=== PATIENT | female | born 2000 | race Caucasian/White ===

== ENCOUNTER 2021-03-22 21:42 | Observation (INO) | payer OTHER, SELFPAY ==
--- NOTE | 2021-03-22 | FALS_PTH ---
PATIENT: JOSE L JEFFERS LOC: MS2 U#:[id number] AGE/SX: ROOM: MS219 RE03/23/[address]: Dr. Kimberly Ley MD : 2000 BED: 1 DIS: 03/23/2021 SPEC #: [id number] RECD: 03/23/21 07:35 STATUS: NOAH REBhavik #: [id number] CAROLE: 03/22/21 00:[address]: Kimberly Ley DEPT: SURGICAL PATHOLOGY RECD BY: Max Terry ENTERED: 03/23/21 09:17 SP TYPE: FALL TUBES OTHR DR: No Primary Care Phys Tissues: ECTOPIC PREG Procedures: Surgery Specimen Level IV HEADER OPERATION: Laparoscopic salpingectomy, removal of ectopic PRE-OP DIAGNOSIS: Ruptured ectopic with hemopertineum TISSUE SUBMITTED: Right fallopian tube with ectopic MICROSCOPIC DIAGNOSIS Right fallopian tube with ectopic , salpingectomy: Fallopian tube with blood clots and immature chorionic villi (ectopic ). A paratubal cyst. SJ:marcelo 03/24/2021 MICROSCOPIC DESCRIPTION Slides are reviewed. GROSS DESCRIPTION Received in fixative is one container labeled with the patient's name and designated right fallopian tube. The specimen consists of a fallopian tube received in two fragments. One fragment measures 5 cm in length and 0.8 cm in average diameter and contains a normal fimbriated end. Adjacent to the fimbriated end is a smooth, glistening cyst containing clear fluid and measuring 0.8 cm. The second fragment is lobular and hemorrhagic and measures 3.5 x 3 x 2.5 cm. Serial sections of this fragment reveals hemorrhagic cut surfaces. No parts are grossly recognized. Filter Tip Catcher sections are submitted in four cassettes. / AM:marcelo 03/23/21 TC:5 CPT: 29325
[2021-03-22 21:43] VITALS: BP 113/57; PULSE 81; RESP 16; TEMP 36.3; O2SAT 100; BMI 20.5
--- NOTE | 2021-03-22 22:02 | ED.RN ---
pt spouse approaches triage stating patient feels like she is going to pass out. Pt is pale and sweaty. Pt assisted into triage 2 to lay down BP 70/45 with HR 89. Pt dizzy and feels like shes going to pass out. verbal order received from Dr Vaca for IV fluids and transvaginal ultrasound.
[2021-03-22] MEDS: 0.9% Normal Saline 1,000 ML 999 ML IV (22:06)
--- NOTE | 2021-03-22 22:07 | US_ITS ---
We are attempting to reach an attending provider to discuss findings. An addendum with communication details will be sent when the communication is complete. STUDY: ULTRASOUND OF THE FEMALE PELVIS - COMPLETE REASON FOR EXAM: Female, 20 years old. Vaginal bleeding and pelvic pain. 8 weeks per history. LMP: Not provided. TECHNIQUE: Transvaginal. COMPARISON: None. FINDINGS: No evidence of intrauterine . Heterogenous thickened endometrium, 2.2 cm in AP dimension. Right adnexal mass anterior to the uterus and separate from the ovary, 6.2 x 3.8 cm. Large amount of mildly echogenic free fluid in the pelvis and extending into MORISON''s pouch. Right ovary 3.9 x 2.6 x 2.3 cm appropriate color DOPPLER flow. Left ovary not visualized. No suspicious left adnexal mass. US/Transvaginal w/Preg US IMPRESSION: Ruptured right adnexal ectopic with a large amount of blood in the peritoneal cavity. Electronically Signed: Neri Goss MD at 23:47 EST Tel , Service support ,
[2021-03-22 22:14] LABS: Absolute Lymphocyte Count 3.15 X10^3/uL (0.83-4.51); Absolute Neutrophil Count 8.4 X10^3/uL (2.0-7.7); Basophil# 0.04 X10^3/uL; Basophil% 0.3 % (0-1); Eosinophil# 0.19 X10^3/uL; Eosinophils% 1.5 % (0-5); Hematocrit 39.1 % (37-47); Hemoglobin 13.3 g/dL (12.0-15.0); Lymphocyte # 3.15 X10^3/ul (0.83-4.51); Lymphocyte % 25.2 % (19-41); Mean Corpuscular Hgb 33.1 pg (27.0-32.0); Mean Corpuscular Volume 97.3 fL (81-99); Mean Platelet Vol. 9.6 fl (6.2-12.0); Monocyte# 0.65 X10^3/uL; Monocyte% 5.2 % (0-10); NRBC Flagged by Analyzer 0 % (0-5); Neutrophil # 8.43 X10^3/uL (2.7-7.7); Neutrophil % 67.5 % (47-70); Platelet Count 288 K/mm3 (150-450); RBC Distribution Width CV 12.3 % (11.6-14.6); RBC Distribution Width SD 44.2 fl (35.1-43.9); Red Blood Count 4.02 M/mm3 (4.2-5.4); White Blood Count 12.5 K/mm3 (4.4-11.0)
--- NOTE | 2021-03-22 22:22 | ED.RN ---
pt taken down to ultrasound via wheelchair.
[2021-03-22 22:38] LABS: Anion Gap 7 (5-15); BUN 12 mg/dL (7-18); BUN/Creat Ratio 16.3 RATIO (10-20); Calcium,Total 8.5 mg/dL (8.5-10.1); Chloride 105 mmol/L (98-107); Creatinine, Serum 0.74 mg/dL (0.55-1.02); EST Glomerular Filtration Rate 104 mL/min (>60); Est Glom Filt Rate - Afr Amer 126 mL/min (>60); Estimated Creatinine Clearance 102.47 ml/min; Glucose 105 mg/dL (74-106); Potassium 3.9 mmol/L (3.5-5.1); Sodium Level 138 mmol/L (136-145)
[2021-03-22 22:39] LABS: Internal QC Validated? YES +Cl - CLEAR BKGD
[2021-03-22 22:40] LABS: Pregnancy, Serum, hCG Quali. POSITIVE Negative
[2021-03-22 23:30] VITALS: BP 98/52
[2021-03-23] VITALS (13 sets, daily range): BP systolic 86–114; BP diastolic 42–75; PULSE 75–114; RESP 14–18; TEMP 36.4–36.9; O2SAT 96–100; BMI 20.5; BMI 23.3
[2021-03-23] MEDS: 0.9% Normal Saline 1,000 ML 999 ML IV
[2021-03-23] MEDS: Ondansetron 4 MG/2 ML Vial IV (00:07)
[2021-03-23] MEDS: Morphine 4 MG/ML Syringe IV (00:08)
--- NOTE | 2021-03-23 00:32 | EDS_ITS ---
HPI HPI - Female History of Present Illness Chief Complaint: Vag Bld, Preg Narrative Narrative: Patient is a female approximately 8 weeks . She states she noticed some spotting over the past 1 to 2 days. She states that today she developed increased bleeding with pain mainly in her mid to right lower quadrant of her abdomen. She states that these new symptoms occurred approximately 2 to 3 hours prior to arrival. She reports there is been no improvement of symptoms with time and secondary to this she presents for evaluation. The patient denies any history of bleeding disorder or blood thinner use PFSH PFSH Medical History no medical history Home Medications acetaminophen [Tylenol] 650 mg PO Q6H PRN 03/23/21 [History Last Taken Unknown] ibuprofen 600 mg PO Q6H PRN 03/23/21 [History Last Taken Unknown] Allergy/AdvReac Type Severity Reaction Status Date / Time No Known Allergies Allergy Verified 03/22/21 21:44 Surgical History no surgical history Social History Smoking Status: Never smoker ROS [facility] ED Constitutional Constitutional ED: Denies chills or fever(s) ENT ENT ED: Denies sore throat Cardiovascular Cardiovascular: Denies chest pain Respiratory/Chest Respiratory/Chest: Denies cough or dyspnea Gastrointestinal Gastrointestinal: Reports abdominal pain and nausea; Denies diarrhea or vomiting Genitourinary Genitourinary ED: Reports other Details: Positive vaginal bleeding ; Denies dysuria Musculoskeletal Musculoskeletal: Denies myalgias Integumentary Denies rash Neurologic Neurologic: Denies headache(s) Hematologic/Lymphatic Hematologic/Lymphatic: Denies easy bleeding or easy bruising EXAM Physical Exam Const Vital Signs: 03/22/21 21:43 03/22/21 23:30 03/23/21 00:02 Temperature 97.4 F L Temperature Source Temporal Pulse Rate 81 75 Respiratory Rate 16 16 Blood Pressure 113/57 L 98/52 L 114/75 Blood Pressure Mean 75 67 88 Blood Pressure Source Blood Pressure Position Blood Pressure Location Pulse Ox 100 100 Oxygen Delivery Method Room Air Room Air 03/23/21 00:16 Temperature 97.7 F L Temperature Source Oral Pulse Rate 88 Respiratory Rate 16 Blood Pressure 101/60 Blood Pressure Mean 73 Blood Pressure Source Monitor Blood Pressure Position Sitting Blood Pressure Location Left Arm Pulse Ox 100 Oxygen Delivery Method Room Air Positive well nourished and well developed General Appearance ED: well developed HEENT Reports moist mucous membranes Eyes PERRL and EOMs intact bilaterally General Eye ED: Yes pale conjunctiva Neck supple Resp normal respiratory effort and clear to auscultation bilaterally Cardio regular rate and regular rhythm GI non-distended GI Narrative: There is pain with palpation in the suprapubic and right lower quadrant region of the abdomen with mild guarding at the site. Auscultation: normoactive bowel sounds Palpation: soft Extremity normal to inspection Neuro oriented x3 and CN's II-XII intact bilaterally Sensorium / Orientation: alert Psych mental status grossly normal Skin no rashes or lesions noted Skin Narrative: Skin is pale in color but capillary refill is less than 3 seconds MDM MDM MDM Narrative Medical decision making narrative: Patient presented to the ER afebrile and not tachycardic. Based on her complaint of abdominal pain with bleeding and her 8- week status basic blood work was ordered as well as an ultrasound. Patient's initial blood pressure was hypotensive with was taken just after the insertion of the IV and it was unknown if this was due to possible vagal episode or true hypotension. The patient's blood volume was normal indicating she is needing a blood transfusion but despite this her pressure remained borderline low so she was started on IV fluid. The ultrasound did show a ruptured ectopic consistent with her report of increased abdominal pain and bleeding. Secondary to this [facility] was contacted. They agreed to accept the patient at this time and will take her to the operating room to correct her symptoms. With improvement of the blood pressure with IV fluids as well as a hemoglobin well above transfusion value I do not feel there is need to start blood at this time the patient will be admitted to [facility] for surgery at this time secondary to her ruptured ectopic Lab Data Attestation: I reviewed the patient's lab results. Labs: Laboratory Results - last 24 hr 03/22/21 03/22/21 03/22/21 21:50 21:52 21:52 WBC 12.5 H RBC 4.02 L Hgb 13.3 Hct 39.1 MCV 97.3 MCH 33.1 H MCHC 34.0 RDW Std Deviation 44.2 H RDW Coeff of Teresa 12.3 Plt Count 288 MPV 9.6 Immature Gran % (Auto) 0.300 Neut % (Auto) 67.5 Lymph % (Auto) 25.2 [place] % (Auto) 5.2 Eos % (Auto) 1.5 Baso % (Auto) 0.3 Absolute Neuts (auto) 8.4 H Absolute Lymphs (auto) 3.15 Nucleated RBC % 0 Sodium 138 Potassium 3.9 Chloride 105 Carbon Dioxide 26.0 Anion Gap 7 BUN 12 Creatinine 0.74 Estim Creat Clear Calc 102.47 Est GFR (MDRD) Af Amer 126 Est GFR (MDRD) Non-Af 104 BUN/Creatinine Ratio 16.3 Glucose 105 Calcium 8.5 Serum , Qual Blood Type A POSITIVE Antibody Screen 03/22/21 03/23/21 21:52 21:50 WBC RBC Hgb Hct MCV MCH MCHC RDW Std Deviation RDW Coeff of Teresa Plt Count MPV Immature Gran % (Auto) Neut % (Auto) Lymph % (Auto) [place] % (Auto) Eos % (Auto) Baso % (Auto) Absolute Neuts (auto) Absolute Lymphs (auto) Nucleated RBC % Sodium Potassium Chloride Carbon Dioxide Anion Gap BUN Creatinine Estim Creat Clear Calc Est GFR (MDRD) Af Amer Est GFR (MDRD) Non-Af BUN/Creatinine Ratio Glucose Calcium Serum , Qual POSITIVE H Blood Type Antibody Screen Cancelled Radiography Diagnostic Testing: Clinical Impression(s) from Imaging Studies Obstetrics Ultrasound 03/22/21 22:07 IMPRESSION: Ruptured right adnexal ectopic with a large amount of blood in the peritoneal cavity. Electronically Signed: Neri Goss MD at 23:47 EST Tel , Service support , ADDENDUM: 03/22/21 [id number] IMPRESSION: Ruptured right adnexal ectopic with a large amount of blood in the peritoneal cavity. N.B. : The above Results were Read Back by Neri Goss MD to Dr. Lio MD, and understanding confirmed on 03/22/2021 23:49:07 (ET). Electronically Signed: Neri Goss MD at 23:47 EST Tel , Service support , Critical Care Time Critical Care Time: Yes Critical care time (excluding procedures): - (Please note critical care time of 33 minutes) Discharge Plan Dx/Rx/DC Orders Clinical Impression: Ruptured ectopic Disposition Disposition: Acute Care Hospital [facility] Discharge Date/Time: 03/23/21 01:30
[2021-03-23 00:41] LABS: International Normalized Ratio 1.1; Partial Thromboplast Time 28.2 Seconds (24.1-36.2); Prothrombin Time (Protime)PT. 13.8 SECONDS (11.7-14.9)
[2021-03-23 01:01] LABS: hCG Titer Quant., Serum 1430 mIU/mL (1-3)
[2021-03-23] MEDS: Bupivacaine Mpf 0.5% 30 ML VIAL (02:20)
[2021-03-23] MEDS: Lactated Ringers 1,000 ML 100 ML IV ×2 (03:50→06:41)
--- NOTE | 2021-03-23 04:35 | PCS.PANDOC ---
PANDEMIC DOCUMENTATION INITIATED: Date: 11/02/2020 Time: 1900 Emergency Documentation initiated 03/23/21 @ 0400
[2021-03-23] MEDS: Ibuprofen 600 MG Tablet PO (08:39)
[2021-03-23 11:45] LABS: Hematocrit 27.1 % (37-47); Hemoglobin 8.9 g/dL (12.0-15.0)
[2021-03-23] MEDS: Acetaminophen 325 MG Tablet 650 MG PO (12:00)
--- NOTE | 2021-03-23 16:08 | PCM.OPRPT ---
Problems Associated Problem List Diagnoses (1) Hypotension due to hypovolemia: Report of Operation Date of Procedure: 03/23/21 Pre-Operative Diagnosis: Ruptured Ectopic, Hypotension from acute blood loss Post-Operative Diagnosis: Right ruptured ectopic Surgery/Procedure Performed:: Laparoscopic right salpingectomy Description of Surgical Findings:: 500 ml hemoperitoneum, ruptured enlarged Right fallopian tube with attached clot. Surgeon: Kimberly Ley rehab therapist: Precious Patel Type of Anesthesia: General Anesthesiologist: Jelani Appiah Special Medications: Tranexamic acid 1 gm. IV Specimen's removed: Right salpinx Drains: none; urine output 200ml Estimated Blood Loss (mL): 5ml Fluids Replaced: see anesthesia note Description of Procedure: After general anesthesia was obtained the patient was prepped and draped in the usual sterile fashion in the dorsal extended ski position and a Diallo catheter was placed to continuous drainage. Hulka tenaculum was placed in the uterus for manipulation and a sponge on stick in the posterior cul-de-sac. After glove change attention was turned to the abdomen where a subumbilical incision was made and the varies needle inserted. After consistent firming placement with a hanging drop method the 5mm trocar and cannula were inserted and the laparoscope used to confirm intraperitoneal placement and a large hemoperitoneum. 2 more trochars were inserted under direct visualization a 10 mm in the left lower quadrant and a 5 mm in the right lower quadrant. After suctioning out most of the hemoperitoneum in the pelvis, it was possible to see the ruptured right ectopic with the expanded tube and a rupture with clot attached on the medial aspect of the fallopian tube. Using the LigaSure the medial aspect of the tube was cauterized several times and then cut towards the mesosalpinx which was then sequentially cauterized and cut until the right tube had been excised. The tube was placed in an Endopouch which was then removed through the left lower quadrant under direct visualization.The pelvis was irrigated with saline and Morison's pouch was also aspirated for fresh blood and the patient placed in reverse Trendelenburg position in order to drain some of the fluid in Morison's pouch into the pelvis and then this was also aspirated. The posterior cul-de-sac was noted to have petechiae and what looked like small blisters. The left tube appeared normal externally. Both ovaries looked normal. Once the pelvis looked cleared of blood the procedure was terminated: All instruments were withdrawn and the pneumoperitoneum reduced and the incisions were infiltrated with a total of 1.5 mL of 0.5% bupivacaine. On the left side the fascia was repaired with a [id number]-[id number] suture of #0 Vicryl and all incisions were then closed with interrupted sutures of #4-0 Monocryl for good hemostasis and Steri-Strips. Sponge and instrument counts were correct x2. The Diallo catheter was discontinued, and the patient was awakened and taken to the recovery area in good condition. Complications None noted Admit VTE Documentation VTE Present on Admission: No VTE Mechan Device Prophylaxis: None VTE Pharm Prophylaxis ordered?: No Reason prophylaxis not ordered:: Treatment Not Indicated
== END 2021-03-23 14:30 | disposition home or self-care (01) ==
LOC: ED 03-23 00:33 → MS2 03-23 01:15
PROVIDERS: Admitting Provider Obstetrics & Gynecology Gynecology; Emergency Provider Emergency Medicine; Visit Provider Obstetrics & Gynecology Gynecology
PROC: (CPT 58661; principal; 2021-03-23 01:15)
DX: O00.101 Right tubal pregnancy without intrauterine pregnancy (principal); Z3A.08 8 weeks gestation of pregnancy; E86.1 Hypovolemia
CPT/HCPCS: 59151; 36415; 76817; 80048; 84702; 84703; 85014; 85018; 85025; 85610; 85730; 86850; 86900; 86901; 87426; 88305; 96361; 96374; 96375; 99218; 99284; J7030; J7120; A4216; G0378; J2405

== ENCOUNTER 2021-12-09 08:40 | Emergency (ER) | payer OTHER, SELFPAY ==
[2021-12-09 08:41] VITALS: BP 124/78; PULSE 100; RESP 16; TEMP 36.8; O2SAT 100; BMI 20.5
--- NOTE | 2021-12-09 09:04 | US_ITS ---
STUDY: FIRST TRIMESTER OBSTETRICAL ULTRASOUND REASON FOR EXAM: Female, 21 years old pelvic pain with LMP: 11/05/2021 TECHNIQUE: Transvaginal TECHNICAL QUALITY: Adequate. PRIOR ULTRASOUND: None. FINDINGS: There is visualization of a single gestational sac in a normal intrauterine position. The mean sac diameter (MSD) measures 0.37 cm, indicating an estimated gestational age (EGA) of 5 weeks, 1 days. The gestational sac shape is within normal limits. There is no demonstrated yolk sac. There is no demonstrated embryo ( pole). The estimated gestation age (EGA) by LMP is 4 weeks, 6 days. The estimated date of delivery (JOSUE) by LMP is 08/12/2022. The estimated gestation age (EGA) by US is 5 weeks, 1 days. The estimated date of delivery (JOSUE) by US is 08/10/2022. The uterus measures 3.0 x 4.9 x 6.6 cm. There is no demonstrated uterine fibroid. The cervix is closed. The right ovary measures 3.1 x 3.9 x 2.3 cm.. There is a complex 3.0 x 2.0 x 2.4 cm right ovarian cyst. Doppler flow to the right ovary is within normal limits. The left ovary measures 1.3 x 1.1 x 2.3 cm. There is no left ovarian cyst. There is no visualized left adnexal mass or complex lesion. There is no fluid in the cul de sac. US/Transvaginal w/Preg US IMPRESSION: Findings suggestive of an early intrauterine with an estimated gestational age by ultrasound of 5 weeks and 1 day. No crown-rump length or yolk sac identified. Complex 3.0 x 2.0 x 2.4 cm right ovarian cyst may reflect a hemorrhagic cyst or endometrioma. Electronically Signed: Mirlande Padilla MD at 12:05 EDT ,
--- NOTE | 2021-12-09 09:05 | EDS_ITS ---
HPI HPI - GI History of Present Illness Chief Complaint: Abd Pain Narrative Narrative: Patient is a G2, P0 female who presents with abdominal tightening with mild nausea for the last few days to 1 week. She states she has past medical history of ectopic back in March of this year, approximately 9 months ago. She had to have surgery where they took part of her right fallopian tube. She states that she is approximately 5 weeks gestation currently by home test that she performed a week ago. Last menstrual period was at the end of October, over 3 weeks ago. She states that she has abdominal tightness mainly in the epigastrium that radiates downward. She denies any vaginal discharge or vaginal bleeding. No fevers or chills. No dysuria or hematuria. She is concerned given her history of ectopic . She states that she has not followed up with an [facility]. PFSH PFSH Home Medications acetaminophen 325 mg tablet (Tylenol) 650 mg PO Q6H PRN Pain 03/23/21 [History Last Taken Unknown] ibuprofen 600 mg tablet 600 mg PO Q6H PRN Pain 03/23/21 [History Last Taken Unknown] Allergy/AdvReac Type Severity Reaction Status Date / Time No Known Allergies Allergy Verified 12/09/21 08:43 Surgical History (Updated 12/09/21 @ 09:30 by Ketty Stevenson) History of tubal ligation Social History Smoking Status: Never smoker ROS ROS ED ROS Narrative Constitutional: No fever, no chills. HEENT: No sore throat. No neck pain. No loss of vision. No rhinorrhea. Cardiovascular: No chest pain. No palpitations. No pedal edema. Respiratory: No cough, no shortness of breath. Abdominal: No epigastric to diffuse, positive nausea. No vomiting. Her pain and tightness is worse with laying down and relieved by sitting up. Genitourinary: No dysuria. No hematuria. Musculoskeletal: No myalgias. No arthralgias. Neurologic: No headaches. No dizziness. No lightheadedness. Skin: No rash. No change in color. Psychiatric: No depression. No anxiety. EXAM Physical Exam Narrative Exam Narrative: Afebrile. Vital signs noted. HEENT: Normocephalic. Atraumatic. PERRL, EOMI. Neck soft and supple. No point tenderness or step off. Cardiovascular: Regular rate and rhythm. No murmurs, rubs, or gallops appreciated. Respiratory: No tachypnea. Lungs clear to auscultation bilaterally. Gastrointestinal: Abdomen soft, nontender, with normoactive bowel sounds. No rebound or guarding. Neurological: Awake. Alert. Nonfocal, nonlateralizing. Skin: No rash. Normal color. No pallor. Musculoskeletal: No pedal edema. Full range of motion extremities. Const Vital Signs: 12/09/21 08:41 12/09/21 11:44 Temperature 98.2 F Temperature Source Temporal Pulse Rate 100 Respiratory Rate 16 16 Blood Pressure 124/78 H Blood Pressure Mean 93 Pulse Ox 100 Oxygen Delivery Method Room Air MDM MDM MDM Narrative Medical decision making narrative: Given her history of ectopic , comprehensive work-up was pursued. Transvaginal ultrasound will be obtained along with quantitative beta hCG. As her pain is in the epigastrium associated with nausea, we will also obtain a CBC, CMP, and lipase along with UA. WBC count is normal at 8.0 with hemoglobin normal at 13.6, hematocrit 40.5. Normal platelet count of 239. CMP is grossly unremarkable except for low alk phos of 37 and low AST of 8. Lipase is normal at 81. hCG quantitative measurement is elevated appropriately at 1991. Urinalysis is negative for infection. I do not feel antibiotics are indicated. Transvaginal ultrasound is suggestive of intrauterine at approximately 5 weeks and 1 day. It is still early to identify a yolk sac or crown-rump length. At this point in time, I feel she can be discharged safely home to [facility] low-up with [facility] [employer] [facility]. She states Dr. Ley performed her surgery, but she can follow-up with one of her partners. I feel she be discharged safely home with follow-up. Return instructions to the emergency department were reviewed. Disposition is discharged home in stable condition. Lab Data Attestation: I reviewed the patient's lab results. Labs: Laboratory Results - last 24 hr 12/09/21 12/09/21 12/09/21 09:13 09:13 09:13 WBC 8.0 RBC 4.19 L Hgb 13.6 Hct 40.5 MCV 96.7 MCH 32.5 H MCHC 33.6 RDW Std Deviation 44.5 H RDW Coeff of Teresa 12.5 Plt Count 239 MPV 9.6 Immature Gran % (Auto) 0.400 Neut % (Auto) 70.9 H Lymph % (Auto) 21.5 [place] % (Auto) 5.8 Eos % (Auto) 1.1 Baso % (Auto) 0.3 Absolute Neuts (auto) 5.7 Absolute Lymphs (auto) 1.72 Nucleated RBC % 0 Sodium 140 Potassium 4.0 Chloride 107 Carbon Dioxide 26.0 Anion Gap 7 BUN 11 Creatinine 0.85 Estim Creat Clear Calc 88.45 Est GFR (MDRD) Af Amer 106 Est GFR (MDRD) Non-Af 87 BUN/Creatinine Ratio 12.9 Glucose 100 Calcium 9.2 Total Bilirubin 0.40 AST 8 L ALT 18 Alkaline Phosphatase 37 L Total Protein 7.7 Albumin 4.1 Globulin 3.6 Albumin/Globulin Ratio 1.1 Lipase 81 HCG, Quant 1992 H Urine Color Urine Clarity Urine pH Ur Specific [place] Urine Protein Urine Glucose (UA) Urine Ketones Urine Occult Blood Urine Nitrite Urine Bilirubin Urine Urobilinogen Ur Leukocyte Esterase Urine RBC Urine WBC Ur Squamous Epith Cells Urine Bacteria Urine Mucus 12/09/21 09:28 WBC RBC Hgb Hct MCV MCH MCHC RDW Std Deviation RDW Coeff of Teresa Plt Count MPV Immature Gran % (Auto) Neut % (Auto) Lymph % (Auto) [place] % (Auto) Eos % (Auto) Baso % (Auto) Absolute Neuts (auto) Absolute Lymphs (auto) Nucleated RBC % Sodium Potassium Chloride Carbon Dioxide Anion Gap BUN Creatinine Estim Creat Clear Calc Est GFR (MDRD) Af Amer Est GFR (MDRD) Non-Af BUN/Creatinine Ratio Glucose Calcium Total Bilirubin AST ALT Alkaline Phosphatase Total Protein Albumin Globulin Albumin/Globulin Ratio Lipase HCG, Quant Urine Color Straw Urine Clarity Clear Urine pH 7.0 Ur Specific [place] 1.005 Urine Protein Negative Urine Glucose (UA) Normal Urine Ketones Negative Urine Occult Blood Negative Urine Nitrite Negative Urine Bilirubin Negative Urine Urobilinogen Normal Ur Leukocyte Esterase Negative Urine RBC 0 SEEN Urine WBC 0 SEEN Ur Squamous Epith Cells 0-5 SEEN Urine Bacteria 0 SEEN Urine Mucus 0 SEEN Radiography Diagnostic Testing: Clinical Impression(s) from Imaging Studies Obstetrics Ultrasound 12/09/21 09:04 IMPRESSION: Findings suggestive of an early intrauterine with an estimated gestational age by ultrasound of 5 weeks and 1 day. No crown-rump length or yolk sac identified. Complex 3.0 x 2.0 x 2.4 cm right ovarian cyst may reflect a hemorrhagic cyst or endometrioma. Electronically Signed: Mirlande Padilla MD at 12:05 EDT , Discharge Plan Triage Chief Complaint: Abd Pain ED Provider: Kain Camacho Dx/Rx/DC Orders Clinical Impression: Intrauterine , Abdominal pain Instructions: 1st Trimester, ED Abdominal Pain Unkn Cause Fem, ED Established ... Prescriptions: No Action acetaminophen [Tylenol] 325 mg Tablet 650 mg PO Q6H PRN (Reason: Pain) ibuprofen 600 mg Tablet 600 mg PO Q6H PRN (Reason: Pain) Primary Care Provider: Care Physician,No Primary Referrals: Kimberly Ley MD [Med Staff - Courtesy Staff] - 1 Week Care Physician,No Primary [Primary Care Provider] - Disposition Disposition: Home, Self Care
[2021-12-09 09:25] LABS: Absolute Lymphocyte Count 1.72 X10^3/uL (0.83-4.51); Absolute Neutrophil Count 5.7 X10^3/uL (2.0-7.7); Basophil# 0.02 X10^3/uL; Basophil% 0.3 % (0-1); Eosinophil# 0.09 X10^3/uL; Eosinophils% 1.1 % (0-5); Hematocrit 40.5 % (37-47); Hemoglobin 13.6 g/dL (12.0-15.0); Lymphocyte # 1.72 X10^3/ul (0.83-4.51); Lymphocyte % 21.5 % (19-41); Mean Corp Hgb Conc 33.6 g/dL (32-36); Mean Corpuscular Hgb 32.5 pg (27.0-32.0); Mean Corpuscular Volume 96.7 fL (81-99); Mean Platelet Vol. 9.6 fl (6.2-12.0); Monocyte# 0.46 X10^3/uL; Monocyte% 5.8 % (0-10); NRBC Flagged by Analyzer 0 % (0-5); Neutrophil # 5.68 X10^3/uL (2.7-7.7); Neutrophil % 70.9 % (47-70); Platelet Count 239 K/mm3 (150-450); RBC Distribution Width CV 12.5 % (11.6-14.6); RBC Distribution Width SD 44.5 fl (35.1-43.9); Red Blood Count 4.19 M/mm3 (4.2-5.4)
[2021-12-09 09:32] LABS: Bacteria 0 SEEN /hpf (None Seen); Mucous, Urine 0 SEEN /hpf (<or=2+); Red Blood Cells-Urine 0 SEEN /hpf (0-5); White Blood Cells 0 SEEN /hpf (0-5)
[2021-12-09 09:35] LABS: Color, Urine Straw (Yellow); Glucose, Dipstick Normal (Normal); Ketone-Dipstick Negative (Negative); Leukocyte Esterase-Dipstick Negative /ul (Negative); Nitrite-Dipstick Negative (Negative); Occult Blood-Urine Negative /ul (Negative); Protein-Dipstick Negative (Negative); Specific Gravity, Urine 1.005 (1.002-1.030); Urine Bilirubin Dipstick Negative (Negative); Urine Clarity Clear (Clear); Urine Urobilinogen Normal (Normal)
[2021-12-09 09:41] LABS: Squamous Epithelial Cells - UA 0-5 SEEN /hpf (5-10)
[2021-12-09 09:42] LABS: ALB/GLOB Ratio 1.1 RATIO (0.9-2.4); AST(SGOT) 8 U/L (15-37); Alanine Aminotransfer ALT/SGPT 18 U/L (13-56); Albumin, Serum 4.1 g/dL (3.2-5.0); Alkaline Phosphatase 37 U/L (45-117); Anion Gap 7 (5-15); BUN 11 mg/dL (7-18); BUN/Creat Ratio 12.9 RATIO (10-20); Calcium,Total 9.2 mg/dL (8.5-10.1); Chloride 107 mmol/L (98-107); Creatinine, Serum 0.85 mg/dL (0.55-1.02); EST Glomerular Filtration Rate 87 mL/min (>60); Est Glom Filt Rate - Afr Amer 106 mL/min (>60); Estimated Creatinine Clearance 88.45 ml/min; Globulin 3.6 g/dL (2.2-4.2); Glucose 100 mg/dL (74-106); Lipase 81 U/L (73-393); Protein, Total 7.7 g/dL (6.4-8.2); Sodium Level 140 mmol/L (136-145)
[2021-12-09 10:28] LABS: hCG Titer Quant., Serum 1992 mIU/mL (1-3)
[2021-12-09 11:44] VITALS: RESP 16
[2021-12-09 12:41] VITALS: RESP 16
== END 2021-12-09 12:41 | disposition home or self-care (01) ==
PROVIDERS: Emergency Provider Emergency Medicine; Visit Provider Emergency Medicine
DX: O09.11 Supervision of pregnancy with history of ectopic pregnancy, first trimester (principal); O99.891 Other specified diseases and conditions complicating pregnancy; R10.9 Unspecified abdominal pain; Z3A.01 Less than 8 weeks gestation of pregnancy
CPT/HCPCS: 76817; 80053; 81001; 83690; 84702; 85025; 99283; A4216

== ENCOUNTER 2022-08-14 15:44 | Inpatient (IN) | payer SELFPAY ==
[2022-08-14] VITALS (14 sets, daily range): BP systolic 94–118; BP diastolic 40–81; PULSE 78–109; RESP 13–19; TEMP 36.5–37.8; O2SAT 95–98; BMI 25.2
[2022-08-14] MEDS: Lactated Ringers 1,000 ML 999 ML IV (15:55)
[2022-08-14 16:03] LABS: Absolute Lymphocyte Count 1.11 X10^3/uL (0.83-4.51); Basophil# 0.03 X10^3/uL; Basophil% 0.1 % (0-1); Hematocrit 40.8 % (37-47); Hemoglobin 14.6 g/dL (12.0-15.0); Lymphocyte # 1.11 X10^3/ul (0.83-4.51); Lymphocyte % 5.3 % (19-41); Mean Corp Hgb Conc 35.8 g/dL (32-36); Mean Corpuscular Hgb 34.2 pg (27.0-32.0); Mean Corpuscular Volume 95.6 fL (81-99); Mean Platelet Vol. 10.3 fl (6.2-12.0); Monocyte# 0.89 X10^3/uL; Monocyte% 4.2 % (0-10); NRBC Flagged by Analyzer 0 % (0-5); Neutrophil # 18.98 X10^3/uL (2.7-7.7); Neutrophil % 90.1 % (47-70); Platelet Count 208 K/mm3 (150-450); RBC Distribution Width SD 45.7 fl (35.1-43.9); Red Blood Count 4.27 M/mm3 (4.2-5.4); White Blood Count 21.1 K/mm3 (4.4-11.0)
[2022-08-14] MEDS: Sodium Citrate/Citric Acid 30 ML UDC PO (16:05)
--- NOTE | 2022-08-14 16:05 | PCM.HP.BLA ---
History and Physical Date of Admission: 08/14/22 Chief complaint: Contractions History present illness: 22-year-old G2, P0 at 40 weeks and 2 days with JOSUE 08/12/2022 by LMP arrives from home via visual display manager with SROM meconium fluid and breech on 08/13 at 1630. Patient labored at home with dilation per visual display manager 6 cm that has not changed in at least 12 hours per visual display manager. Patient denies headache, vision change, chest pain, shortness of breath, nausea vomit, right upper quadrant pain. Patient states good movement. is complicated by late hand sizer, breech, meconium, prolonged rupture membranes Obstetric history: G1: Ectopic status post salpingectomy G2: Current Past medical history: None Medications: None Allergies: No known drug allergies Past surgical history: Salpingectomy for ectopic Family history: Denies history DVT or PE Social history: Denies smoking, alcohol use, drug use Review of systems: Besides above pertinent positives a full review of systems was performed and found to be negative Physical exam: Vitals: Blood pressure 118/81, heart rate 98 temperature 100.0 ?F General: Uncomfortable with contractions HEENT: Normocephalic/atraumatic no cervical of adenopathy Cardiac/respiratory: No use of accessory muscles, nonlabored breathing Abdomen: Soft, nontender, gravid Pelvic exam: Cervical exam /- Extremities: No peripheral edema normal peripheral pulses Psych: Normal affect normal demeanor nonpressured speech Labs: White blood cell count 21.1 hemoglobin 14.6 hematocrit 40.8 platelets 208 Bedside ultrasound: Breech Assessment and plan: 22-year-old G2, P0 at 40 weeks and 2 days called by nursing notified late hand sizer patient with above story SROM at home for meconium fluid and breech laboring at home with no change in dilation since approximately 12 hours ago. Given orders for nursing to call ASSISTANT CLINICAL DIRECTOR, notify anesthesia, and prepare the OR for section, given orders for 2 g Ancef and 500 mg of azithromycin assuming no drug allergies, given orders to obtain panel and preoperative labs. Arrived for evaluation, based on evaluation discussed patient in need of section for breech presentation. Risk benefits alternatives discussed. Patient understands risk include but are not limited to visceral or vascular injury, prolonged hospitalization, blood loss need for transfusion, reoperation. Patient state and partner state understanding wish to proceed. All questions were answered and consent was signed. Educated patient on risks of meconium along with prolonged rupture membranes and risk for infection. For primary section now
[2022-08-14 16:11] LABS: Bacteria 0 SEEN /hpf (None Seen); Mucous, Urine 0 SEEN /hpf (<or=2+); Red Blood Cells-Urine 0 SEEN /hpf (0-5)
[2022-08-14 16:16] LABS: Color, Urine Yellow (Yellow); Glucose, Dipstick Normal (Normal); Ketone-Dipstick 50 mg/dl (Negative); Leukocyte Esterase-Dipstick 100 /ul (Negative); Nitrite-Dipstick Negative (Negative); Occult Blood-Urine 10 /ul (Negative); Protein-Dipstick 15 mg/dl (Negative); Specific Gravity, Urine 1.005 (1.002-1.030); Urine Bilirubin Dipstick Negative (Negative); Urine Clarity Clear (Clear); Urine Urobilinogen Normal (Normal)
[2022-08-14] MEDS: Cefazolin 2 GM in 0.9% Normal Saline 100 ML IV (16:17)
[2022-08-14 16:29] LABS: Amphetamine Urine VISTA NEGATIVE (<1000 ng/mL); Barbiturate Urine VISTA NEGATIVE (< 200 ng/mL); Benzodiazepine Urine VISTA NEGATIVE (< 200 ng/mL); Cocaine Urine VISTA NEGATIVE (< 300 ng/mL); Ecstacy Urine VISTA NEGATIVE (< 500 ng/mL); Methadone Urine VISTA NEGATIVE (< 300 ng/mL); PCP Urine VISTA NEGATIVE (< 25 ng/mL); THC Urine VISTA NEGATIVE (< 50 ng/mL); Vista UDS pH Range 7
[2022-08-14 16:47] LABS: Squamous Epithelial Cells - UA 0-5 SEEN /hpf (5-10); White Blood Cells 0-5 SEEN /hpf (0-5)
--- NOTE | 2022-08-14 16:55 | OP.PCM_ITS ---
Details Operative Information Date of Procedure: 08/14/22 Pre-Operative Diagnosis: Term, breech Post-Operative Diagnosis: Term, breech electronic calibration technician #1: Precious Patel Findings Description of Procedure: Procedure: Primary low transverse section Via Pfannenstiel incision Surgeon: Lalo Alford MD Anesthesia: Spinal EBL: 600 cc Urine output: 600 cc IV fluids: 1000 cc Complications: None Specimen: None Findings: Female in breech presentation, Apgars 8/9. Meconium stained fluid. Normal uterus, tubes, and ovaries. Consent: Patient arrived from home laboring with flagstone layer with meconium stained fluid and breech presentation elects for primary low-transverse section Via Pfannenstiel incision. Patient understands risk of the procedure include but are not limited to visceral or vascular injury, prolonged hospitalization, blood loss and need for transfusion, reoperation. Patient state understanding wish to proceed. All questions were answered and consent was signed. Procedure: Patient was brought back to the OR where spinal anesthesia was found to be adequate. 2 g of Ancef and 500 mg of azithromycin were given for infection prophylaxis. Patient was prepared and draped in a supine position with leftward tilt. A Pfannenstiel incision was made at the skin with a scalpel. The incision was carried down to the fascia with a scalpel. The fascia was excised and extended laterally. Rectus muscle was dissected at the midline down to the level of the pubic symphysis. Preperitoneal fatty tissue was noted and peritoneum was entered bluntly. Peritoneum was extended superiorly and inferiorly with good visualization of bladder. Bladder blade was inserted and vesicouterine peritoneum was identified. Low transverse hysterotomy was made. Hand was placed into the incision and the baby was delivered in standard breech fashion. Delayed cord clamping was performed, cord was clamped and cut. Baby handed off to nursing. Placenta was delivered via cord traction and fundal massage. IV oxytocin was initiated in order to facilitate uterine contractions. Uterus was exteriorized and wiped out with dry laparotomy sponge in order to re move remaining placental membranes. Uterus was closed in a continuous running fashion. Hemostasis was achieved with the Bovie. Uterus was placed back in the abdominal cavity and the incision was reinspected, good hemostasis was noted. Fascia was closed in a continuous running fashion with PDS suture. Subcutaneous irrigation was performed. Good hemostasis was noted. Skin was closed in a subc uticular fashion. All counts were correct x2. Patient tolerated procedure well and was brought to recovery in stable condition.
[2022-08-14] MEDS: Oxytocin 15 Units/NS 250ml 15 UNITS/250 ML IV.SOLN 83 UNITS IV (17:24)
[2022-08-14 17:51] LABS: Rubella IgG Non-Reactive (Nonreactive); Syphilis Antibodies Non-reactive
[2022-08-14] MEDS: Ketorolac 30 MG/ML Syringe IV ×2 (17:51→23:29)
[2022-08-14] MEDS: Acetaminophen 500 MG Tablet 1000 MG PO ×2 (17:51→23:29)
[2022-08-14 17:54] LABS: Chlamydia Trachomatis by PCR Negative (Negative); Neisserai gonorrhoeae by PCR Negative (Negative); Probe Check PASS; Sample Adequacy Control PASS; Specimen Processing Control PASS
[2022-08-14 17:58] LABS: HIV - WCH Non-Reactive (Nonreactive); Hepatitis B Surface Antigen Non-Reactive (Nonreactive); Hepatitis C Antibody Non-Reactive (Nonreactive)
[2022-08-14] MEDS: Lactated Ringers 1,000 ML 100 ML IV (19:09)
[2022-08-15] VITALS (8 sets, daily range): BP systolic 89–101; BP diastolic 38–62; PULSE 80–93; RESP 14–17; TEMP 36.6–36.9; O2SAT 94–97
[2022-08-15] MEDS: Cefazolin 1 GM/50 ML BAG IV ×2 (01:09→08:47)
[2022-08-15] MEDS: Lactated Ringers 1,000 ML 100 ML IV (03:14)
--- NOTE | 2022-08-15 03:45 | NURSING ---
pt legs were still numb at the 8 hour coleen.
--- NOTE | 2022-08-15 04:08 | DCINST_ITS ---
Discharge Instructions Diet Discharge Diet: No restrictions Activity Discharge Activity: Return to Normal Activity, May Drive, May Shower and - (No tub baths for 2 weeks) May resume sexual activity in: 6-8 weeks Lifting Restrictions: No lifting over 25 pounds for 2 to 3 weeks Dressing / Incision Call your doctor if your incision/area has: Continuous Slow Oozing and Foul Smelling Discharge Call your doctor if you observe: Fever of 101 or Higher, Shortness of breath and Chest pain Follow Up Care Please Follow Up With: Lalo Alford MD When: 2 weeks postoperatively Test Results: Test results from this visit will be discussed in further detail at your follow- up appointment, if applicable. Discharge Plan Admission Admit Date/Time: 08/14/22 15:44 Primary Reason for Your Visit: Breech Attending Provider: Lalo Alford Primary Care Provider: Care PhysicianBetina Primary Instructions Additional Instructions / Restrictions: Regular diet. Okay to shower. No tub baths for 2 weeks. No lifting over 25 pounds for 2 to 3 weeks. No intercourse for 6 to 8 weeks. Call if fever, chills, chest pain, shortness of breath. Follow-up 2 weeks postoperatively Discharge Orders/Prescriptions Prescriptions: New oxycodone 5 mg tablet 5 mg PO Q6H PRN (Reason: pain (scale score 7-10)) 4 Days Qty: 16 0RF Continued acetaminophen [Tylenol] 325 mg Tablet 650 mg PO Q6H PRN (Reason: Pain) ibuprofen 600 mg Tablet 600 mg PO Q6H PRN (Reason: Pain) Referrals / Follow Up: Care PhysicianBetina Primary [Primary Care Provider] - Disposition Discharge Orders: Discharge Patient (Routine); Ordered 08/15/22 Ordered By: Dr. Lalo Alford
--- NOTE | 2022-08-15 04:09 | PN.OBGYN_ITS ---
Subjective Subjective No overnight complaints Objective Data Objective Data Vital Signs: Vital Signs Temp Pulse Resp BP Pulse Ox O2 Del Method 97.7 F L 81 14 97/44 L 94 Room Air 08/14/22 20:14 08/15/22 03:25 08/15/22 03:25 08/15/22 03:25 08/15/22 03:25 08/15/22 03:25 Oxygen Delivery Method Room Air Weight: 156 lb 8.451 oz Body Mass Index (BMI) 25.2 Intake & Output: Intake and Output for Last 24 Hours 08/13/22 08/14/22 08/15/22 23:59 23:59 23:59 Intake Total 1615 / 1615 918.33 / 918.33 Output Total 1300 / 1300 Balance 315 / 315 918.33 / 918.33 Lab / Micro Data Result Diagrams: 08/14/22 15:55 Labs: Laboratory Results - last 24 hr 08/14/22 15:55: WBC 21.1 H, RBC 4.27, Hgb 14.6, Hct 40.8, MCV 95.6, MCH 34.2 H, MCHC 35.8, RDW Std Deviation 45.7 H, RDW Coeff of Teresa 13.0, Plt Count 208, MPV 10.3, Immature Gran % (Auto) 0.300, Neut % (Auto) 90.1 H, Lymph % (Auto) 5.3 L, [place] % (Auto) 4.2, Eos % (Auto) 0.0, Baso % (Auto) 0.1, Absolute Neuts (auto) 19.0 H, Absolute Lymphs (auto) 1.11, Nucleated RBC % 0 08/14/22 16:00: Urine Color Yellow, Urine Clarity Clear, Urine pH 7.0, Ur Specific [place] 1.005, Urine Protein 15 H, Urine Glucose (UA) Normal, Urine Ketones 50 H, Urine Occult Blood 10 H, Urine Nitrite Negative, Urine Bilirubin Negative, Urine Urobilinogen Normal, Ur Leukocyte Esterase 100 H, Urine RBC 0 SEEN, Urine WBC 0-5 SEEN, Ur Squamous Epith Cells 0-5 SEEN, Urine Bacteria 0 SEEN, Urine Mucus 0 SEEN 08/14/22 16:00: Syphilis Total Ab Non-reactive, Rubella IgG Antibody Non- Reactive 08/14/22 16:00: Blood Type A POSITIVE, Antibody Screen NEGATIVE 08/14/22 16:00: Urine Opiates Screen NEGATIVE, Urine Methadone Screen NEGATIVE, Ur Barbiturates Screen NEGATIVE, Ur Phencyclidine Scrn NEGATIVE, Ur Amphetamines Screen NEGATIVE, MDMA (Ecstasy) Screen NEGATIVE, U Benzodiazepines Scrn NEGATIVE, Urine Cocaine Screen NEGATIVE, U Cannabinoids Screen NEGATIVE, Ur Drug Screen Comment 08/14/22 16:00: Syphilis Total Ab Cancelled, Hep Bs Antigen Non-Reactive, Hepatitis C Antibody Non-Reactive, HIV 1&2 Antibody Non-Reactive 08/14/22 16:00: Chlam trachomat DNA PCR Negative, N.gonorrhoeae DNA (PCR) Negative, Group B Strep DNA Cancelled, Specimen Comment Cancelled Physical Exam Const alert, oriented x3, no apparent distress, average body habitus, healthy appearing and well nourished HEENT normocephalic and moist oral mucous membranes Eyes PERRL Neck full ROM Resp normal respiratory effort, no retractions and no use of accessory muscles GI GI Narrative: Soft, nontender, bandage clean dry and intact Extremity normal to inspection and full ROM Neuro moves all extremities and no focal motor deficits Psych mental status grossly normal, affect normal, speech normal and activity/motor behavior normal Assessment & Plan (1) delivery delivered: PLAN: Postop day 1 status post primary section for breech. Breast- feeding. Pain well controlled. Continue Ancef for 24 hours. Patient and partner wish to discharge home today, discussed need to discuss with database administration project manager. Okay to discharge home if okay with database administration project manager
[2022-08-15] MEDS: Ketorolac 30 MG/ML Syringe IV ×2 (05:42→13:06)
[2022-08-15] MEDS: 0.9% Saline Lock 10 ML Syringe IV ×3 (05:43→13:06)
[2022-08-15] MEDS: Acetaminophen 500 MG Tablet 1000 MG PO ×3 (05:43→18:49)
[2022-08-15] MEDS: Enoxaparin 40 MG/0.4 ML Syringe SC (05:43)
[2022-08-15 06:35] LABS: Hemoglobin 10.3 g/dL (12.0-15.0); Mean Corp Hgb Conc 33.2 g/dL (32-36); Mean Corpuscular Hgb 33.1 pg (27.0-32.0); Mean Corpuscular Volume 99.7 fL (81-99); Mean Platelet Vol. 10.6 fl (6.2-12.0); Platelet Count 155 K/mm3 (150-450); RBC Distribution Width CV 13.2 % (11.6-14.6); RBC Distribution Width SD 48.5 fl (35.1-43.9); Red Blood Count 3.11 M/mm3 (4.2-5.4); White Blood Count 15.8 K/mm3 (4.4-11.0)
[2022-08-15] MEDS: Senna/Docusate Sodium 1 Tablet PO (08:46)
[2022-08-15] MEDS: Ibuprofen 600 MG Tablet PO (18:49)
--- NOTE | 2022-08-15 21:23 | NURSING ---
RN educated pt on MMR vaccine due to NonImmune status. Pt declines MMR vaccine.
[2022-08-16] MEDS: Ibuprofen 600 MG Tablet PO ×2 (01:43→07:04)
[2022-08-16] MEDS: Acetaminophen 500 MG Tablet 1000 MG PO ×2 (01:43→07:04)
[2022-08-16 01:50] VITALS: BP 110/62; PULSE 78; RESP 16; TEMP 36.9; O2SAT 98
[2022-08-16 07:41] VITALS: BP 111/69; PULSE 84; RESP 16; TEMP 36.7; O2SAT 98
--- NOTE | 2022-08-16 08:20 | PCM.PN.OB ---
Subjective Subjective Patient feeling well, pain controlled. Lochia minimal. Breast-feeding. Objective Data Objective Data Vital Signs: Vital Signs Temp Pulse Resp BP Pulse Ox O2 Del Method 98.1 F 84 16 111/69 98 Room Air 08/16/22 07:41 08/16/22 07:41 08/16/22 07:41 08/16/22 07:41 08/16/22 07:41 08/16/22 01:50 Oxygen Delivery Method Room Air Weight: 71 kg Body Mass Index (BMI) 25.2 Intake & Output: Intake and Output for Last 24 Hours 08/14/22 08/15/22 08/16/22 23:59 23:59 23:59 Intake Total 1615 / 1615 968.33 / 968.33 Output Total 1300 / 1300 860 / 860 Balance 315 / 315 108.33 / 108.33 Lab / Micro Data Attestation: I reviewed the patient's lab results. Result Diagrams: 08/15/22 06:27 Physical Exam Const alert, oriented x3 and no apparent distress HEENT normocephalic Head and Scalp: atraumatic Neck full ROM Resp normal respiratory effort Cardio regular rate GI normal to inspection, nondistended, normoactive bowel sounds GI Narrative: Uterus 2 cm below umbilicus, dressing clean and dry Back/Spine normal ROM Extremity normal to inspection Extremity Narrative: Minimal pedal edema Neuro no focal motor deficits and no sensory deficits noted Psych mental status grossly normal and affect normal Assessment & Plan (1) delivery delivered: PLAN: Postop day 2 status post section for breech. Patient feeling well, pain controlled. Acute blood loss anemia secondary to surgery, stable. Iron supplement on home-going. Breast-feeding. Discharge home today.
--- NOTE | 2022-08-16 08:21 | PCM.DC.SUM ---
Providers Date of Admission: 08/14/22 Primary Care Physician: Betina Primary Care Phys Reason For Visit: PRIMARY C SECTION Diagnosis Discharge Diagnosis (1) delivery delivered: Status: Acute Code(s): O82 - Encounter for delivery without indication Plan: Postop day 2 status post section for breech. Patient feeling well, pain controlled. Acute blood loss anemia secondary to surgery, stable. Iron supplement on home-going. Breast-feeding. Discharge home today. Medications at Discharge Home Medications acetaminophen 325 mg tablet (Tylenol) 650 mg PO Q6H PRN Pain 03/23/21 ibuprofen 600 mg tablet 600 mg PO Q6H PRN Pain 03/23/21 oxycodone 5 mg tablet 5 mg PO Q6H PRN pain (scale score 7-10) 4 days #16 tabs 08/14/22 Hospital Course Operations section Physical Exam Const alert, oriented x3 and no apparent distress HEENT normocephalic Head and Scalp: atraumatic Neck full ROM Resp normal respiratory effort Cardio regular rate GI normal to inspection, nondistended, normoactive bowel sounds GI Narrative: Uterus 2 cm below umbilicus, dressing clean and dry Back/Spine normal ROM Extremity normal to inspection Extremity Narrative: Minimal pedal edema Neuro no focal motor deficits and no sensory deficits noted Psych mental status grossly normal and affect normal Weight / BMI Weight Weight: 71 kg Body Mass Index (BMI) 25.2 ABG / Lab / Microbiology Data Result Diagrams: 08/15/22 06:27 D/C Instructions Discharge Diet: No restrictions May resume sexual activity in: 6-8 weeks Call your doctor if your incision/area has: Continuous Slow Oozing and Foul Smelling Discharge Call your doctor if you observe: Fever of 101 or Higher, Shortness of breath and Chest pain Please Follow Up With: Lalo Alford MD When: 2 weeks postoperatively Meaningful Use Info Meaningful Use Diagnoses (Choose all that apply): None applicable Discharge Plan Admission Admit Date/Time: 08/14/22 15:44 Primary Reason for Your Visit: Breech Attending Provider: Lalo Alford Primary Care Provider: Care PhysicianBetina Primary Instructions Additional Instructions / Restrictions: Regular diet. Okay to shower. No tub baths for 2 weeks. No lifting over 25 pounds for 2 to 3 weeks. No intercourse for 6 to 8 weeks. Call if fever, chills, chest pain, shortness of breath. Follow-up 2 weeks postoperatively Discharge Orders/Prescriptions Prescriptions: New oxycodone 5 mg tablet 5 mg PO Q6H PRN (Reason: pain (scale score 7-10)) 4 Days Qty: 16 0RF Continued acetaminophen [Tylenol] 325 mg Tablet 650 mg PO Q6H PRN (Reason: Pain) ibuprofen 600 mg Tablet 600 mg PO Q6H PRN (Reason: Pain) Referrals / Follow Up: Care Physician,No Primary [Primary Care Provider] -
== END 2022-08-16 10:40 | disposition home or self-care (01) | DRG 788 ==
PROVIDERS: Admitting Provider Obstetrics & Gynecology; Visit Provider Obstetrics & Gynecology
DX: O32.1XX0 Maternal care for breech presentation, not applicable or unspecified (principal); O42.92 Full-term premature rupture of membranes, unspecified as to length of time between rupture and onset of labor; O48.0 Post-term pregnancy; O77.0 Labor and delivery complicated by meconium in amniotic fluid; Z37.0 Single live birth; Z3A.40 40 weeks gestation of pregnancy
CPT/HCPCS: 59025; 59050; 76815; 80307; 81001; 85025; 85027; 86703; 86762; 86780; 86803; 86850; 86900; 86901; 87340; 87491; 87591; 99221; J7120; A4216; G0378; J2405

== ENCOUNTER 2024-04-26 21:27 | Emergency (ER) | payer OTHER, SELFPAY ==
[2024-04-26 21:29] VITALS: BP 123/75; PULSE 87; RESP 16; TEMP 36.9; O2SAT 98; BMI 24.4
[2024-04-26 22:05] LABS: Bacteria 0 SEEN /hpf (None Seen); Mucous, Urine 0 SEEN /hpf (<or=2+)
[2024-04-26 22:07] LABS: Absolute Lymphocyte Count 2.49 X10^3/uL (0.83-4.51); Absolute Neutrophil Count 5.9 X10^3/uL (2.0-7.7); Basophil# 0.02 X10^3/uL; Basophil% 0.2 % (0-1); Eosinophil# 0.16 X10^3/uL; Eosinophils% 1.7 % (0-5); Hematocrit 37.4 % (37-47); Hemoglobin 12.6 g/dL (12.0-15.0); Lymphocyte # 2.49 X10^3/ul (0.83-4.51); Lymphocyte % 27.2 % (19-41); Mean Corp Hgb Conc 33.7 g/dL (32-36); Mean Corpuscular Hgb 32.1 pg (27.0-32.0); Mean Corpuscular Volume 95.4 fL (81-99); Mean Platelet Vol. 9.6 fl (6.2-12.0); Monocyte# 0.52 X10^3/uL; Monocyte% 5.7 % (0-10); NRBC Flagged by Analyzer 0 % (0-5); Neutrophil # 5.93 X10^3/uL (2.7-7.7); Neutrophil % 64.8 % (47-70); Platelet Count 274 K/mm3 (150-450); RBC Distribution Width CV 12.4 % (11.6-14.6); RBC Distribution Width SD 42.8 fl (35.1-43.9); Red Blood Count 3.92 M/mm3 (4.2-5.4); White Blood Count 9.2 K/mm3 (4.4-11.0)
[2024-04-26 22:08] LABS: Color, Urine Yellow (Yellow); Glucose, Dipstick Normal (Normal); Ketone-Dipstick Negative (Negative); Leukocyte Esterase-Dipstick Negative /ul (Negative); Nitrite-Dipstick Negative (Negative); Occult Blood-Urine Negative /ul (Negative); Protein-Dipstick Negative (Negative); Urine Bilirubin Dipstick Negative (Negative); Urine Clarity Clear (Clear); Urine Urobilinogen Normal (Normal); Urine pH 6.5 (5.0 - 8.0)
--- NOTE | 2024-04-26 22:14 | US_ITS ---
PROCEDURE: TRANSVAGINAL W/PREG US REASON FOR EXAM: History ectopic; spotting; 11 weeks . COMPARISON: 12/09/2021 ultrasound. FINDINGS Intrauterine gestational sac measures 3.1 cm and dates 8 weeks and 2 days. No visualized yolk sac or pole. Uterus measures 11.0 x 7.0 x 7.0 cm. Mildly heterogeneous cervix with a small amount of fluid. The right ovary measures 2.1 x 1.2 x 1.6 cm with preserved vascular flow. The left ovary measures 5.6 x 6.5 x 3.9 cm with preserved vascular flow. There is a unilocular 5.6 x 6.2 x 4.9 cm left ovarian simple cyst. Heterogeneous possibly crenulated ovarian tissue adjacent to the cyst which may represent a corpus luteum. US/Transvaginal w/Preg US IMPRESSION: Intrauterine gestational sac without visualized pole. Heterogeneous cervical tissue with a small amount of internal fluid. Although unlikely, an underlying lesion such as a polyp can not be excluded. Large left ovarian unilocular cyst. There is adjacent crenulated ovarian tissu e with peripheral vascular flow which may represent a corpus luteum. Short interval follow-up to confirm is recommended. Reading Location: [id number]
[2024-04-26 22:15] LABS: Red Blood Cells-Urine 0 SEEN /hpf (0-5); Squamous Epithelial Cells - UA 0-5 SEEN /hpf (5-10); White Blood Cells 0-5 SEEN /hpf (0-5)
[2024-04-26 22:16] LABS: Internal QC Validated? YES +Cl - CLEAR BKGD; Pregnancy, Serum, hCG Quali. POSITIVE Negative
[2024-04-26 22:24] LABS: ALB/GLOB Ratio 0.9 RATIO (0.9-2.4); AST(SGOT) 7 U/L (15-37); Alanine Aminotransfer ALT/SGPT 21 U/L (13-56); Albumin, Serum 3.5 g/dL (3.2-5.0); Alkaline Phosphatase 45 U/L (45-117); Anion Gap 7 (5-15); BUN 11 mg/dL (7-18); BUN/Creat Ratio 21.5 RATIO (10-20); Calcium,Total 9.4 mg/dL (8.5-10.1); Chloride 106 mmol/L (98-107); Creatinine, Serum 0.51 mg/dL (0.55-1.02); EST Glomerular Filtration Rate 155 mL/min (>60); Est Glom Filt Rate - Afr Amer 187 mL/min (>60); Estimated Creatinine Clearance 157.86 ml/min; Globulin 3.9 g/dL (2.2-4.2); Glucose 94 mg/dL (74-106); Potassium 3.7 mmol/L (3.5-5.1); Protein, Total 7.4 g/dL (6.4-8.2); Sodium Level 138 mmol/L (136-145)
--- NOTE | 2024-04-26 22:33 | ED.VIS.FEGU ---
HPI HPI - Female History of Present Illness Chief Complaint: Vag Bld, Preg Narrative Narrative: Patient is a 23-year-old female G4, P1 previous ectopic who states that she is currently 11 weeks and states that she has not been evaluated yet she states that her appointment is next week. States that she had spotting approximately starting 2 days ago and knows that she has a history of ectopic therefore she was concerned came for an ultrasound to ensure that she does not have a ectopic . States that her right tube is missing from her previous ectopic . Patient states that she did not have intercourse prior to her spotting starting. She says she noted that she has some left-sided abdominal discomfort with the spotting. PFSH [facility] Medical History Tubal Family history of hearing loss at age younger than 7 years Home Medications ?Medication ?Instructions ?Recorded ?Last Taken ?Type acetaminophen 325 mg tablet 650 mg PO Q6H PRN Pain 03/23/21 Unknown History (Tylenol) ibuprofen 600 mg tablet 600 mg PO Q6H PRN Pain 03/23/21 Unknown History oxycodone 5 mg tablet 5 mg PO Q6H PRN pain (scale score 08/14/22 Unknown Rx 7-10) 4 days #16 tabs Allergy/AdvReac Type Severity Reaction Status Date / Time No Known Allergies Allergy Verified 04/26/24 21:32 Surgical History History of tubal ligation Social History household members: spouse housing: house Smoking Status: Never smoker ROS ROS ED ROS Narrative Constitutional: Denies fevers, chills, headaches malaise, dizziness Eyes: Denies changes vision double vision blurry vision Cardiovascular: Denies chest pain or palpitations Respiratory: Denies coughing wheezing shortness of breath Abdomen: Complains of left-sided abdominal cramping denies any nausea vomit diarrhea : Denies painful urination, hematuria, polyuria complains of spotting as noted above Neurological: Denies any numbness, weakness, tingling Musculoskeletal: Denies back pain Skin: Denies rashes or lesions EXAM Physical Exam Narrative Exam Narrative: General: Patient lying in bed rest comfortably did not appear to be in acute distress Head: Atraumatic, normocephalic Eyes: PERRL bilaterally, EOMI bilaterally, no conjunctival injection noted Neck: Soft, supple, trachea midline Cardiovascular: Regular rate and rhythm Abdomen: Soft, nondistended, nontender to palpation Extremities: +5/5 strength noted in the bilateral upper and lower extremities Neurological: Patient following commands knew that she was at [facility] year is 2024 Skin: Warm, dry, intact no rashes or lesions noted Const Vital Signs: 04/26/24 21:29 04/26/24 23:29 Temperature 98.4 F Temperature Source Oral Pulse Rate 87 96 Respiratory Rate 16 Blood Pressure 123/75 H 112/78 Blood Pressure Mean 91 89 Pulse Ox 98 Oxygen Delivery Method Room Air MDM MDM MDM Narrative Medical decision making narrative: Patient is a 23-year-old female who presents to the emergency department with a chief complaint of spotting in the setting of a at 11 weeks. On the differential diagnose includes but not limited to urinary tract infection, threatened miscarriage, ectopic . Once workup is obtained reviewed she will be reevaluated. Patient CBC was reviewed and showed no evidence leukocytosis white blood count normal at 9.2, hemoglobin 12.6, platelet count noted be 274. Patient sodium normal 130, potassium normal at 3.7, creatinine was 0.51. Patient AST and ALT were 7 and 21 respectively positive test. Patient urinalysis did not reveal any evidence of infection. Patient's transvaginal ultrasound was obtained and reviewed which showed intrauterine gestational sac without visualized pole suspecting that she is 8 weeks and 2 days. She has heterogeneous cervical tissue is small amount of internal fluid although unlikely an underlying lesion such as a polyp cannot be excluded. Large left ovarian unilocular cyst there is adjacent crenulated ovarian tissue with peripheral vascular flow which may represent corpus luteum short interval follow-up is recommended. I did obtain a hard copy of the ultrasound to the patient and advised her to call her document imaging specialist about this and follow-up with them in the outpatient setting and return for short-term follow-up for her repeat ultrasound. Patient is agreeable this plan as well as significant other at bedside she would like to go home at this point time she is advised to return with worsening bleeding abdominal pain or any other concerns all question concerns answered she discharged home in stable condition. Lab Data Labs: Laboratory Results - last 24 hr 04/26/24 21:57 WBC 9.2 RBC 3.92 L Hgb 12.6 Hct 37.4 MCV 95.4 MCH 32.1 H MCHC 33.7 RDW Std Deviation 42.8 RDW Coeff of Teresa 12.4 Plt Count 274 MPV 9.6 Immature Gran % (Auto) 0.400 Neut % (Auto) 64.8 Lymph % (Auto) 27.2 [place] % (Auto) 5.7 Eos % (Auto) 1.7 Baso % (Auto) 0.2 Absolute Neuts (auto) 5.9 Absolute Lymphs (auto) 2.49 Nucleated RBC % 0 Sodium 138 Potassium 3.7 Chloride 106 Carbon Dioxide 25.0 Anion Gap 7 BUN 11 Creatinine 0.51 L Estim Creat Clear Calc 157.86 Est GFR (MDRD) Af Amer 187 Est GFR (MDRD) Non-Af 155 BUN/Creatinine Ratio 21.5 H Glucose 94 Calcium 9.4 Total Bilirubin 0.20 AST 7 L ALT 21 Alkaline Phosphatase 45 Total Protein 7.4 Albumin 3.5 Globulin 3.9 Albumin/Globulin Ratio 0.9 Serum , Qual POSITIVE Urine Color Yellow Urine Clarity Clear Urine pH 6.5 Ur Specific [place] 1.010 Urine Protein Negative Urine Glucose (UA) Normal Urine Ketones Negative Urine Occult Blood Negative Urine Nitrite Negative Urine Bilirubin Negative Urine Urobilinogen Normal Ur Leukocyte Esterase Negative Urine RBC 0 SEEN Urine WBC 0-5 SEEN Ur Squamous Epith Cells 0-5 SEEN Urine Bacteria 0 SEEN Urine Mucus 0 SEEN Radiography Diagnostic Testing: Clinical Impression(s) from Imaging Studies Obstetrics Ultrasound 04/26/24 22:14 IMPRESSION: Intrauterine gestational sac without visualized pole. Heterogeneous cervical tissue with a small amount of internal fluid. Although unlikely, an underlying lesion such as a polyp can not be excluded. Large left ovarian unilocular cyst. There is adjacent crenulated ovarian tissue with peripheral vascular flow which may represent a corpus luteum. Short interval follow-up to confirm is recommended. Reading Location: [id number] Discharge Plan Triage Chief Complaint: Vag Bld, Preg ED Provider: Tushar Harris Dx/Rx/DC Orders Clinical Impression: Spotting affecting in first trimester Prescriptions: No Action acetaminophen [Tylenol] 325 mg Tablet 650 mg PO Q6H PRN (Reason: Pain) ibuprofen 600 mg Tablet 600 mg PO Q6H PRN (Reason: Pain) oxycodone 5 mg tablet 5 mg PO Q6H PRN (Reason: pain (scale score 7-10)) 4 Days Qty: 16 0RF Primary Care Provider: Care Physician,No Primary Referrals: Care Physician,No Primary [Primary Care Provider] - Activity Restrictions/Additional Instructions: Have repeat ultrasound performed as we discussed here in the emergency department. Call your document imaging specialist. Return with worsening symptoms or any other concerns Print Language: [place]ese Disposition Disposition: Home, Self Care
[2024-04-26 23:29] VITALS: BP 112/78; PULSE 96
[2024-04-26 23:36] VITALS: BP 112/78; PULSE 96; RESP 17; TEMP 36.8; O2SAT 99
== END 2024-04-26 23:41 | disposition home or self-care (01) ==
PROVIDERS: Emergency Provider Emergency Medicine; Visit Provider Emergency Medicine
DX: O26.851 Spotting complicating pregnancy, first trimester (principal); O26.891 Other specified pregnancy related conditions, first trimester; R10.9 Unspecified abdominal pain; O09.11 Supervision of pregnancy with history of ectopic pregnancy, first trimester; Z3A.08 8 weeks gestation of pregnancy
CPT/HCPCS: 76817; 80053; 81001; 84703; 85025; 99282; A4216